=== PATIENT | male | born 1985 | race Caucasian/White ===

== ENCOUNTER → 2019-09-14 | Emergency (ER) | payer OTHER ==
[~2019-09-14] VITALS: Ht 180.3 cm; Wt 93.9 kg
== END | disposition home or self-care (01) ==
LOC: ER 17:31
DX: B37.9 Candidiasis, unspecified (principal); E86.0 Dehydration; R11.2 Nausea with vomiting, unspecified

== ENCOUNTER 2020-09-16 19:26 | Emergency (ER) | payer OTHER ==
[~2020-09-16] VITALS: Ht 180.3 cm; Wt 113.4 kg
== END 2020-09-16 20:58 | disposition home or self-care (01) ==
LOC: ER 19:26
DX: M94.0 Chondrocostal junction syndrome [Tietze] (principal)